=== PATIENT | female | born 1980 | race Two or more races ===

== ENCOUNTER 2017-08-20 18:29 | Emergency (ER) | payer MEDICAID ==
[~2017-08-20] VITALS: Ht 152.4 cm; Wt 63.5 kg
[2017-08-20 21:39] VITALS: BP 122/76
== END 2017-08-20 21:42 | disposition home or self-care (01) ==
LOC: ER 18:30
DX: O9A.213 Injury, poisoning and certain other consequences of external causes complicating pregnancy, third trimester (principal); M79.642 Pain in left hand; Z3A.29 29 weeks gestation of pregnancy; V43.02XA Car driver injured in collision with other type car in nontraffic accident, initial encounter; Y93.89 Activity, other specified; Y92.830 Public park as the place of occurrence of the external cause; Y99.8 Other external cause status
CPT/HCPCS: 99281; A4606; Z7610; Z7502